=== PATIENT | male | born 1955 | race Caucasian/White ===

== ENCOUNTER 2021-06-12 08:09 | Emergency (ER) | payer MEDICAID, SELFPAY ==
[2021-06-12] VITALS (8 sets, daily range): BP systolic 129–157; BP diastolic 89–97; PULSE 71–84; RESP 16–24; TEMP 37; O2SAT 95–99; BMI 30.8
--- NOTE | 2021-06-12 08:10 | ECG_ITS ---
APPROVED REPORT Exam: Resting ECG HR:79 bpm ECG Measurements Heart Rate 79 AXES RI 180 P 40 QRSd 98 QRS -46 QT 398 T 20 QTc 456 Conclusion Normal sinus rhythm Left anterior fascicular block Inferior infarct, age undetermined Anterolateral infarct, age undetermined Abnormal ECG Electronically signed by : Russell Sanchez MD 06/13/2021 14:26:58
--- NOTE | 2021-06-12 08:20 | XR_ITS ---
FINAL REPORT CLINICAL HISTORY: cough FINDINGS: There is mild cardiomegaly. The mediastinum is normal. There is abnormal airspace opacity in the right mid lung probably due to a small focus of pneumonia. There is atelectasis in the mid lungs bilaterally. There are no pleural effusions. There is no pneumothorax. There is no osseous abnormality. IMPRESSION: Right midlung airspace opacity probably due to a small focus of pneumonia. Reviewed, Interpreted and Dictated by Miles Juarez MD Transcribed by Buck Rosenberg Authenticated by Miles Juarez MD on 06/12/2021 09:18:17 AM [facility]
--- NOTE | 2021-06-12 08:21 | CT_ITS ---
FINAL REPORT TECHNIQUE: Axial images through the abdomen and pelvis were performed without contrast. This study was performed with techniques to keep radiation doses as low as reasonably achievable, (ALARA). Individualized dose reduction techniques using automated exposure control or adjustment of mA and/or kV according to the patient's size were employed. CLINICAL HISTORY: pain with nausea for a few days, Pt states he just does not feel well. FINDINGS: Abdomen: There are patchy groundglass and airspace infiltrates at the lung bases concerning for viral pneumonia. There are tiny low-attenuation foci in the liver probably related to benign cysts. The gallbladder is present. The spleen measures at the upper limits of normal in size. There is a benign-appearing cyst arising from the lower pole of the left kidney measuring 3.9 cm in diameter. Other smaller cysts are seen in both kidneys. There is mild descending and sigmoid diverticulosis with no evidence of diverticulitis. There is 25? of lumbar scoliosis convex to the right. Pelvis: The urinary bladder is unremarkable. The appendix is not visualized. There is no pelvic mass or inflammation. IMPRESSION: 1. Bibasilar airspace infiltrates concerning for viral pneumonia. 2. Borderline splenomegaly. 3. Multiple bilateral renal cysts. 4. Lumbar scoliosis. Reviewed, Interpreted and Dictated by Miles Juarez MD Transcribed by Michelle Barbour Authenticated by Miles Juarez MD on 06/12/2021 09:28:05 AM [facility]
[2021-06-12 08:38] LABS: Influenza A, PCR Not Detected (NotDetected); Influenza B, PCR Not Detected (NotDetected)
[2021-06-12 08:40] LABS: Anion Gap 13.9 mEq/L (5-15); Carbon Dioxide 27 mmol/L (22.0-30.0); Chloride 94 mmol/L (98-107); Sodium 132 mmol/L (136-145)
[2021-06-12 08:41] LABS: Alanine Aminotransferase 35 U/L (12-78); Albumin/Globulin Ratio 1.2 (1.1-1.8); Alkaline Phosphatase 70 U/L (38-126); Aspartate Amino Transferase 52 U/L (17-59); Bilirubin,Total 0.8 mg/dl (0.2-1.3); Blood Urea Nitrogen 18 mg/dl (9-20); Creatinine Clearance Estimated 103 mL/min (50-200); Estimated Glomerular Filt Rate 97 ml/min (>60); GFR (African American) 118 ML/MIN (>60); Globulin 3.3 g/dL (1.3-3.2); Glucose 127 mg/dl (74-100); Lipase 62 U/L (23-300); Total Protein,Serum 7.3 g/dl (6.3-8.2)
[2021-06-12 08:42] LABS: Basophils % 0.8 % (0.1-2.0); Eosinophils % 0.1 % (0.1-12.0); Hematocrit 47.4 % (42.0-52.0); Hemoglobin 16.1 g/dL (14.1-18.0); Lymphocytes % 21.3 % (10-50); Mean Corpuscular Hemoglobin 30.4 pg (27.0-31.2); Mean Corpuscular Volume 89.5 fl (80-94); Mean Platelet Volume 8.6 fl (7.4-10.4); Monocytes # 0.3 K/mm3 (0.1-1.0); Monocytes % 6.4 % (1.7-9.3); Neutrophils # 3.4 K/mm3 (1.8-7.8); Neutrophils % 71.3 % (37.0-80.0); Platelet Count 152 K/mm3 (142-424); Red Cell Distribution Width 13.3 % (11.5-17.5); White Blood Count 4.7 K/mm3 (4.8-10.8)
[2021-06-12 09:01] LABS: Troponin I < 0.01 ng/ml (0.00-0.034)
[2021-06-12 09:02] LABS: Potassium 2.9 mmoL/L (3.5-5.1)
--- NOTE | 2021-06-12 09:03 | PC.NURSE ---
Spoke with kenny from lab about a critical value for potassium 2.9.
[2021-06-12 09:05] LABS: Coronavirus 19, PCR Detected (NotDetected)
--- NOTE | 2021-06-12 09:33 | PC.NURSE ---
Spoke with pt he stated that he was unable to use the bathroom at this time.
--- NOTE | 2021-06-12 10:08 | PC.NURSE ---
Pt stated that he was still unable to go to the restroom for urine sample
--- NOTE | 2021-06-12 10:30 | [facility].EDGENADL ---
ED Disposition Clinical Impression: Pneumonia due to COVID-19 virus, Hypokalemia Gastritis Qualifiers: Gastritis type: other gastritis Chronicity: acute Gastritis bleeding: without bleeding Qualified Code(s): K29.00 - Acute gastritis without bleeding Disposition: Home, Self-Care Condition on Discharge: Good Instructions: DI for COVID-19 (Suspected or Confirmed ) Prescriptions: Albuterol Sulfate [Albuterol Sulfate Hfa] 2 puff IH Q4HP PRN #1 each PRN Reason: Wheezing Transmission Status: Pending to [facility] methylPREDNISolone [Medrol 4mg tab] 4 mg PO DIRECTED #21 tab Transmission Status: Pending to [facility] Promethazine HCl [Phenergan 25mg tab] 25 mg PO BID #10 tab Transmission Status: Pending to [facility] Azithromycin [Z-Felix 250mg Tab] 250 mg PO DIRECTED #6 tab Transmission Status: Pending to [facility] Referrals: Provider,Referral, MD [Primary Care Provider] - - Critical Care Critical Care Time: No Attestation: On 06/12/21, the high probability of a clinically significant, sudden or life threatening deterioration of the following system(s) required my full and direct attention, intervention and personal management. The time I documented below is in addition to time spent performing reported procedures but includes the following listed in this critical care notation. Medical Decision Making - Medical Records Medical records reviewed: Yes: I reviewed the patient's medical records. - Harshad Inquiry Pt receiving controlled substance: No Vital Signs: 06/12/21 08:10 06/12/21 08:30 06/12/21 09:00 Temperature 98.6 F Temperature Source Oral Pulse Rate 84 71 Pulse Rate [Right Radial] 82 Respiratory Rate 19 16 16 Blood Pressure 139/89 150/91 H Blood Pressure [Right Arm] 153/97 H Blood Pressure Mean 105 114 Blood Pressure Mean [Right Arm] 115 Blood Pressure Source [Right Arm] Automatic Cuff Blood Pressure Position [Right Arm] Supine 02 Sat by Pulse Oximetry 97 98 99 Oxygen Delivery Method Room Air 06/12/21 09:30 06/12/21 10:00 Temperature Temperature Source Pulse Rate 79 75 Pulse Rate [Right Radial] Respiratory Rate 18 16 Blood Pressure 147/94 H 157/94 H Blood Pressure [Right Arm] Blood Pressure Mean 111 105 Blood Pressure Mean [Right Arm] Blood Pressure Source [Right Arm] Blood Pressure Position [Right Arm] 02 Sat by Pulse Oximetry 99 96 Oxygen Delivery Method - Lab Data Lab Results 06/12/21 08:15: WBC 4.7 L, RBC 5.30, Hgb 16.1, Hct 47.4, MCV 89.5, MCH 30.4, MCHC 34.0, RDW 13.3, Plt Count 152, MPV 8.6, Neut % (Auto) 71.3, Lymph % (Auto) 21.3, [place] % (Auto) 6.4, Eos % (Auto) 0.1, Baso % (Auto) 0.8, Neut # (Auto) 3.4, Lymph # (Auto) 1.0, [place] # (Auto) 0.3, Eos # (Auto) 0.0, Baso # (Auto) 0.0 06/12/21 08:15: Sodium 132 L, Potassium 2.9 L*, Chloride 94 L, Carbon Dioxide 27, Anion Gap 13.9, BUN 18, Creatinine 0.80, Estimated Creat Clear 103, Estimated GFR 97, Est GFR ( Amer) 118, Glucose 127 H, Calcium 9.0, Total Bilirubin 0.8, AST 52, ALT 35, Alkaline Phosphatase 70, Troponin I < 0.01, Total Protein 7.3, Albumin 4.0, Globulin 3.3 H, Albumin/Globulin Ratio 1.2, Lipase 62 06/12/21 08:15: SARS-CoV-2 (PCR) Detected A, Influenza A Untype (PCR) Not detected, Influenza Type B (PCR) Not detected Result diagrams: 06/12/21 08:15 06/12/21 08:15 Orders (Tests/Meds): ED MEDICATIONS Generic Name Dose Route Start Last Admin Trade Name Freq PRN Reason Stop Dose Admin Sodium Chloride 8 ml 06/12/21 08:21 Sodium Chloride 0.9% 10ml Vial IV 07/12/21 08:20 NEEDED PRN dilute pepcid Discontinued Medications Generic Name Dose Route Start Last Admin Trade Name Freq PRN Reason Stop Dose Admin Famotidine 20 mg 06/12/21 08:21 06/12/21 08:27 Famotidine 20mg/2ml Vial IV 06/12/21 08:22 20 mg ONCE ONE Administration Sodium Chloride 1,000 mls @ 999 mls/hr 06/12/21 08:30
== END 2021-06-12 11:25 | disposition home or self-care (01) ==
PROVIDERS: Emergency Provider Emergency Medicine
DX: K29.70 Gastritis, unspecified, without bleeding (principal); J12.82 Pneumonia due to coronavirus disease 2019; E87.6 Hypokalemia
CPT/HCPCS: 71045; 74176; 80053; 83690; 84484; 85025; 93005; 96365; 96366; 96367; 96375; 99283; C9803; J2405; U0003; U0005

== ENCOUNTER → 2021-06-17 15:53 | Outpatient (CLI) | payer MEDICAID, SELFPAY ==
[2021-06-17 16:34] LABS: Chloride 101 mmol/L (98-107)
[2021-06-17 16:35] LABS: Potassium 3.8 mmoL/L (3.5-5.1); Sodium 139 mmol/L (136-145)
[2021-06-17 16:38] LABS: Anion Gap 11.8 mEq/L (5-15); Blood Urea Nitrogen 15 mg/dl (9-20); Calcium 9.4 mg/dl (8.4-10.2); Carbon Dioxide 30 mmol/L (22.0-30.0); Estimated Glomerular Filt Rate 97 ml/min (>60); GFR (African American) 118 ML/MIN (>60); Glucose 103 mg/dl (74-100)
== END ==
PROVIDERS: PCP Nurse Practitioner Family; Visit Provider Nurse Practitioner Family
DX: E87.5 Hyperkalemia (principal)
CPT/HCPCS: 36415; 80048